=== PATIENT | female | born 1980 | race Hispanic/Latino ===

== ENCOUNTER 2022-03-18 19:02 | Emergency (ER) | payer SELFPAY ==
[~2022-03-18] VITALS: Ht 167.6 cm; Wt 72.6 kg
[2022-03-18] MEDS ORDERED: POTASSIUM CHLORIDE 20 MEQ TAB CR PO STA (21:03)
[2022-03-18] MEDS ORDERED: POTASSIUM CHLORIDE 20 MEQ TAB CR PO ONE (21:25)
== END 2022-03-18 23:29 | disposition home or self-care (01) ==
LOC: EDBD 19:07 → FSED 19:07
DX: R55 Syncope and collapse (principal); R00.2 Palpitations; I10 Essential (primary) hypertension; F41.9 Anxiety disorder, unspecified
CPT/HCPCS: 70450; 71046; 80053; 81003; 81025; 85025; 93005; 99284